=== PATIENT | female | born 1965 | race Caucasian/White ===

== ENCOUNTER 2017-05-04 16:54 | Emergency (ER) | payer MEDICAID ==
[2017-05-04 17:10] VITALS: BP 149/84; PULSE 84; RESP 16; TEMP 97.7; O2SAT 95
[2017-05-04] MEDS ORDERED: AMOXICILLIN/CLAVULANATE POT 875/125 MG TAB PO ONE (17:43)
[2017-05-04] MEDS ORDERED: TDAP ADULT 0.5 ML INJ (BOOSTRIX) IM ONE (17:44)
--- NOTE | 2017-05-04 18:38 | EDPHY ---
H & P Stated Complaint: dog bite Source: Patient - Personal History Current Tetanus Diphtheria and Acellular Pertussis (TDAP): No - Medical/Surgical History Hx Asthma: No Hx Chronic Respiratory Disease: No Hx Diabetes: No Hx Cardiac Disease: No Hx Renal Disease: No Hx Cirrhosis: No Hx Alcoholism: No Hx HIV/AIDS: No Hx Splenectomy or Spleen Trauma: No - Social History Smoking Status: Current every day smoker HPI/ROS: CHIEF COMPLAINT: Dog bite HISTORY OF PRESENT ILLNESS: Patient complains of dog bite to right hand. This occurred today at 2pm. Bite involves the dorsum of the right hand. Mildly painful at rest. Severely painful with movement or palpation. No numbness or tingling. No injury to palm of hand. No injury elsewhere on the arm. She has clean the wound at home. She has no other associated complaints or modifying factors. She is uncertain when her last tetanus shot was. She has no information about the dog itself, but does know the name and phone number of the owner [employer] company of the dog. She is declining an x-ray of the hand. 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 We have communicated thus far in riding. We have requested the presence of an brick sorter. REVIEW OF SYSTEMS: Ten systems reviewed and are negative unless otherwise noted in the HPI EXAMINATION General Appearance: Alert, no distress Cardiovascular: Pulses normal throughout. Brisk cap refill Neurological: A&O, sensory symmetric, strength symmetric Skin: Warm and dry, no rash. Puncture wounds to the dorsum of the right hand over the thumb, 3rd metacarpal 4th metacarpal and 5th metacarpal. No bleeding. No purulence. No foreign body. Minimal ecchymosis. Extremities: Tenderness of the dorsum right hand. Minimal edema. Range of motion is fully intact. Excellent strength of the interossei. No crepitus. No wrist drop. No sensory deficits. Psychiatric: Mood and affect normal DIFFERENTIAL DIAGNOSES: Including but not limited to dog bite, contusion, fracture, sprain, strain MDM: 5:44 p.m. Dog bite to the dorsal right hand. Patient knows where the dog is located but she does not know any information about the dog. Information regarding the owner [employer] company of the dog will be passed on to animal Control. She is uncertain when her last tetanus shot was, thus we will update her status here. I will anesthetize the areas and we will copiously irrigate the wounds. Augmentin has been commenced here. 6:40 p.m. Superficial dog bite to the right hand. The wounds have been anesthetized and irrigated. We started on Augmentin. Her tetanus status has been updated. Discharged home on Augmentin. Return to the emergency department for any worsening pain, fever, chills, erythema or purulence. Patient is comfortable with this plan and discharged home stable condition. brick sorter was contacted, we requested their assistance with the patient. The patient was comfortable with riding down her information prior to arrival of the reservoir engineering consultant. At 6:40 p.m. she requested that she actually be discharged home prior to arrival reservoir engineering consultant. We informed her that we are happy to wait the reservoir engineering consultant, but she had declined. This was all conveyed by riding. She was comfortable with being discharged home with simply riding down our conversation. She is comfortable with our printed instructions. She elected to be discharged home prior to assistance with the reservoir engineering consultant. ED Precautions: Worsening pain. Erythema, edema, cyanosis, pallor, paresthesia or anesthesia. SUPERVISION: This patient was independently evaluated without direct examination by the attending physician. Case was discussed with attending physician. (Anthony Campuzano ) Constitutional: Initial Vital Signs Temperature (C) 97.7 F 05/04/17 17:06 Heart Rate 84 05/04/17 17:06 Respiratory Rate 16 05/04/17 17:06 Blood Pressure 149/84 H 05/04/17 17:06 O2 Sat (%) 95 05/04/17 17:06 O2 Delivery Mode Room Air Allergies/Adverse Reactions: Sulfa (Sulfonamide Antibiotics) Allergy (Verified 05/04/17 17:21) Home Medications: Medication Instructions Recorded Acetaminophen/Codeine 300/30Mg 1 each PO Q6 PRN #15 tab 05/04/17 [Tylenol #3 (*)] Amoxicillin/Clavulanate Pot 875 mg PO BID #20 tab 05/04/17 [Augmentin 875 MG TAB (*)] Departure - Departure Disposition: Home, Routine, Self-Care Clinical Impression: Dog bite of right hand without complication Qualifiers: Encounter type: initial encounter Qualified Code(s): S61.451A - Open bite of right hand, initial encounter Condition: Good Instructions: Diphtheria/Acellular Pertussis/Tetanus Booster Vaccine (By injection), Animal Bite (ED) Additional Instructions: 1. Keep the wounds covered until healed 2. Clean and only with soap and water. No peroxide or other estate manager 3. Apply bacitracin to the wounds once daily for 3-5 days and stop 4. Return here or follow up with primary care physician in 48 hours for wound recheck 5. Return here for any worsening pain, redness, swelling, fever or difficulty moving the fingers or wrist 6. Follow up with animal control with health department to determine the vaccination status of the dog that made the bite Referrals: Haylee Magallanes MD [Medical Doctor] - As per Instructions Prescriptions: Acetaminophen/Codeine 300/30Mg [Tylenol #3 (*)] 1 each PO Q6 PRN #15 tab PRN Reason: Pain, Mild Amoxicillin/Clavulanate Pot [Augmentin 875 MG TAB (*)] 875 mg PO BID #20 tab
== END 2017-05-04 18:56 | disposition home or self-care (01) ==
PROC: 3E0234Z Introduction of Serum, Toxoid and Vaccine into Muscle, Percutaneous Approach (ICD-10-PCS; principal; 2017-05-04)
DX: S61.451A Open bite of right hand, initial encounter (principal); F17.200 Nicotine dependence, unspecified, uncomplicated; Z23 Encounter for immunization; W54.0XXA Bitten by dog, initial encounter; Y99.8 Other external cause status; Y93.89 Activity, other specified